=== PATIENT | female | born 1940 | race Caucasian/White ===

== ENCOUNTER 2020-01-16 16:02 | Emergency (ER) | payer OTHER ==
[~2020-01-16] VITALS: Ht 167.6 cm; Wt 113.9 kg
--- NOTE | 2020-01-16 16:10 | NUR ---
pt [id number], C/O PRESSURE R/T THROAT DENIES PAIN, SYNCOPAL EPISODE X1. VS CHECKED. HOOKED ON MONITOR. IV ACCESS STARTED ON R WRIST G20, PRE-EXISTING IV BY PARAMEDICS ON L HAND G20. BLOOD DRAW DONE SENT TO LAB.
[2020-01-16] MEDS: ONDANSETRON HCL/PF 4 MG/2 ML VIAL IV ONE (16:30)
[2020-01-16] MEDS: IV NS 0.9% 500 ML BAG IV ONE (16:30)
[2020-01-16] MEDS ORDERED: ONDANSETRON HCL/PF 4 MG/2 ML VIAL ONE (16:36)
--- NOTE | 2020-01-16 16:38 | NUR ---
[facility] CALLED FOR A STEMI TX, KAILA CAMPBELL GOT THE FACESHEET AND EKD AND WILL HAVE DR SIERRA GIVE US A CALL BACK
--- NOTE | 2020-01-16 16:40 | NUR ---
[facility] CALLED AND THEY ARE CLOSE TO STEMI PER BENJAMIN
[2020-01-16] MEDS: NITROGLYCERIN 0.4 MG/TAB BOTTLE SL ONE (16:42)
[2020-01-16] MEDS ORDERED: NITROGLYCERIN 0.4 MG/TAB BOTTLE ONE (16:42)
--- NOTE | 2020-01-16 16:51 | NUR ---
[facility] ER CALLED,SPOKE WITH CALLIE BYRD, FACESHEET AND EKG FAXED TO [phone] REQUESTED
--- NOTE | 2020-01-16 16:56 | NUR ---
CALLED [facility] FOR CODE 3 ALS TRANSPORT. ETA: KARRIE AVAILABLE.
--- NOTE | 2020-01-16 16:57 | NUR ---
CALLED [facility] FOR CODE 3 ALS TRANSPORT FOR STEMI TRANSPORT. ETA: [phone].
[2020-01-16 16:59] LABS: BASOPHILS # (AUTO) 0.1 /CMM (0.0-0.2); BASOPHILS % (AUTO) 0.6 % (0.0-2.0); EOSINOPHILS % (AUTO) 1.9 % (0.0-6.0); HEMATOCRIT 43 % (33-45); HEMOGLOBIN 13.9 g/dL (11.5-14.8); LYMPHOCYTES # (AUTO) 2.8 /CMM (0.8-4.8); MEAN CORPUSCULAR HGB CONC 32 g/dl (31.0-36.0); MEAN CORPUSCULAR VOLUME 85 fL (82-100); MONOCYTES # (AUTO) 0.8 /CMM (0.1-1.30); MONOCYTES % (AUTO) 8.1 % (2.0-12.0); NEUTROPHILS # (AUTO) 5.5 /CMM (1.8-8.9); NEUTROPHILS % (AUTO) 59.4 % (43.0-81.0); PLATELET COUNT (AUTO) 241 /CMM (150-450); RED BLOOD CELL COUNT(AUTO) 5.06 MIL/uL (4.0-5.2); WHITE BLOOD COUNT (AUTO) 9.3 K/uL (4.3-11.0)
--- NOTE | 2020-01-16 16:59 | NUR ---
CALLED [facility] FOR CODE 3 ALS TRANSPORT FOR STEMI TRANSPORT. ETA: 90 MINUTES.
--- NOTE | 2020-01-16 17:03 | NUR ---
CALLED 911 FOR HIGHER LEVEL OF CARE
[2020-01-16] MEDS ORDERED: HEPARIN SODIUM, PORCINE 5000 UNITS/1 ML VIAL ONE (17:10)
[2020-01-16] MEDS: HEPARIN SODIUM, PORCINE 5000 UNITS/1 ML VIAL IV ONE (17:12)
--- NOTE | 2020-01-16 17:12 | NUR ---
pt picked up by paramedics
[2020-01-16 17:14] LABS: CALCIUM, SERUM 9.5 mg/dL (8.5-10.1); CARBON DIOXIDE 29 mmol/L (21-32); CHLORIDE 104 mmol/L (98-107); GLUCOSE 177 mg/dL (74-106); POTASSIUM 3.7 mmol/L (3.5-5.1); SODIUM SERUM 142 mmol/L (136-145); UREA NITROGEN, BLOOD 19 mg/dL (7-18)
--- NOTE | 2020-01-16 17:20 | NUR ---
report given to favian maria at [facility]
[2020-01-16 17:21] VITALS: BP 92/64
[2020-01-16 17:30] LABS: ALANINE AMINOTRANSFERASE 23 U/L (12-78); ALBUMIN 3.3 g/dL (3.4-5.0); ALKALINE PHOSPHATASE 76 U/L (46-116); ASPARTATE AMINOTRANSFERASE 16 U/L (15-37); B-TYPE NATRIURETIC PEPTIDE 53 PG/ML (0-125); BILIRUBIN,DIRECT 0.2 mg/dL (0.0-0.2); BILIRUBIN,TOTAL 0.8 mg/dL (0.2-1.0)
== END 2020-01-16 17:22 | disposition short-term general hospital (02) ==
LOC: ER 16:06
DX: I21.29 ST elevation (STEMI) myocardial infarction involving other sites (principal); R42 Dizziness and giddiness; I10 Essential (primary) hypertension; E11.9 Type 2 diabetes mellitus without complications; F41.9 Anxiety disorder, unspecified; Z85.3 Personal history of malignant neoplasm of breast; Z88.6 Allergy status to analgesic agent
CPT/HCPCS: 36415; 71045; 80048; 80076; 83880; 84484; 85025; 93005 ×3; 96374; 96375; 99291; J1644; J2405; J7030; J7040